=== PATIENT | male | born 1970 | race Two or more races ===

== ENCOUNTER 2023-11-02 10:45 | Emergency (ER) | payer OTHER ==
[~2023-11-02] VITALS: Ht 167.6 cm; Wt 66.7 kg
[2023-11-02 11:06] VITALS: BP 141/94; TEMP 98.5; O2SAT 100
[2023-11-02] MEDS: TDAP [DIPH/PERTUSSIS/TET] 0.5 ML VIAL IM ONE (11:28)
[2023-11-02] MEDS ORDERED: BACI/NEOM/POLY B OINT PKT 1 UDPKT PACKET ONE (11:50)
[2023-11-02] MEDS: BACI/NEOM/POLY B OINT PKT 1 UDPKT PACKET TP ONE (11:51)
== END 2023-11-02 13:02 | disposition home or self-care (01) ==
LOC: ER 10:52
DX: T22.232A Burn of second degree of left upper arm, initial encounter (principal); X16.XXXA Contact with hot heating appliances, radiators and pipes, initial encounter; Y93.89 Activity, other specified; Y92.89 Other specified places as the place of occurrence of the external cause; Y99.8 Other external cause status
CPT/HCPCS: 99282; 16020; J7030